=== PATIENT | female | born 1960 | race Two or more races ===

== ENCOUNTER 2024-03-10 08:30 | Day surgery (SDC) | payer BC, SELFPAY ==
[2024-03-10] VITALS (9 sets, daily range): BP systolic 105–126; BP diastolic 67–74; PULSE 67–75; RESP 14–21; TEMP 36.2–36.4; O2SAT 93–97; BMI 29.8
[2024-03-10] MEDS: fentaNYL CIT INJ 50 mCg/ML AMP 2ML (ASD USE ONLY) IV (09:48)
[2024-03-10] MEDS: DiphenhydrAMINE INJ 50 MG/ML VIAL 25 MG IV (09:48)
[2024-03-10] MEDS: MIDAZOLAM INJ 1 MG/ML VIAL 2 ML (ASD USE ONLY) 2 MG IV (09:55)
== END 2024-03-10 11:02 | disposition home or self-care (01) ==
PROVIDERS: PCP Obstetrics & Gynecology; Referring Provider Surgery; Visit Provider Surgery
PROC: 0DBE8ZX Excision of Large Intestine, Via Natural or Artificial Opening Endoscopic, Diagnostic (ICD-10-PCS; CPT 45380; principal; 2024-03-10 13:00)
DX: K92.1 Melena (principal)
CPT/HCPCS: 45378; J1200; J2250; J3010